=== PATIENT | male | born 1990 | race Two or more races ===

== ENCOUNTER 2018-11-26 19:19 | Emergency (ER) | payer MEDICARE, MEDICAID ==
[~2018-11-26] VITALS: Ht 170.2 cm; Wt 86.2 kg
[2018-11-26 20:35] VITALS: BP 176/92
[2018-11-26] MEDS ORDERED: cefTRIAXone SOD 1,000 MG VL IM ONE (22:15)
[2018-11-26] MEDS ORDERED: TETANUS-DIPTH-ACEL PERTUSSIS 0.5ML SYRG IM ONE (22:15)
== END 2018-11-26 22:35 | disposition home or self-care (01) ==
LOC: ER 19:19
DX: S61.233A Puncture wound without foreign body of left middle finger without damage to nail, initial encounter (principal); Z23 Encounter for immunization; W20.8XXA Other cause of strike by thrown, projected or falling object, initial encounter; Y93.89 Activity, other specified; Y92.89 Other specified places as the place of occurrence of the external cause; Y99.8 Other external cause status
CPT/HCPCS: 73120; 90471; 90715; 96372; 99283; J0696; 12001